=== PATIENT | female | born 1985 | race Caucasian/White ===

== ENCOUNTER 2022-08-26 12:00 | Emergency (ER) | payer OTHER ==
[2022-08-26 12:26] VITALS: TEMP 99.3; BMI 27.8
[2022-08-26 14:33] VITALS: BP 147/92; PULSE 94; RESP 20
== END 2022-08-26 14:33 | disposition home or self-care (01) ==
LOC: JER 12:00
DX: R07.9 Chest pain, unspecified (principal); R11.0 Nausea; F41.9 Anxiety disorder, unspecified; R00.2 Palpitations
CPT/HCPCS: 71046-TC-FY; 93005; 93010; 99284-25

== ENCOUNTER 2023-03-09 23:03 | Emergency (ER) | payer OTHER ==
[2023-03-09 23:17] VITALS: BP 133/81; PULSE 89; RESP 18; TEMP 98.9; BMI 25.4
[2023-03-09 23:37] LABS: BASO % 1.1 % (0-2.0); EOS % 0.7 % (0-4.5); HEMATOCRIT 38.7 % (32.4-45.2); HEMOGLOBIN 12.4 GM/dL (10.7-15.3); MCH 28.8 pg (25.7-33.7); MCHC 32.1 g/dl (32.0-36.0); MEAN CELL VOLUME 89.6 fl (80-96); MEAN PLT VOLUME 8.6 fl (7.5-11.1); MONO % 7.2 % (3.8-10.2); PLATELET COUNT 340 10^3/uL (134-434); RBC 4.32 M/mm3 (3.60-5.2); RDW 14.5 % (11.6-15.6); WHITE BLOOD COUNT 12.3 K/mm3 (4.0-10.0)
[2023-03-09 23:57] LABS: POTASSIUM 3.8 mmol/L (3.5-5.1)
[2023-03-09 23:59] LABS: ALBUMIN 3.2 g/dl (3.4-5.0); CALCIUM 9.5 mg/dL (8.5-10.1)
[2023-03-10] LABS: BLOOD UREA NITROGEN 9.2 mg/dL (7-18)
[2023-03-10 00:02] LABS: CREATININE 0.7 mg/dL (0.55-1.3)
[2023-03-10 00:04] LABS: BILIRUBIN,TOTAL 0.1 mg/dL (0.2-1); TOT PROT 7.3 g/dl (6.4-8.2)
== END 2023-03-10 00:09 | disposition home or self-care (01) ==
LOC: JER 23:03
DX: R00.2 Palpitations (principal); I49.8 Other specified cardiac arrhythmias; R10.9 Unspecified abdominal pain
CPT/HCPCS: 36415; 80053; 82962; 84484; 85025; 93005; 93010; 99284-25